=== PATIENT | male | born 1950 | race Caucasian/White ===

== ENCOUNTER 2019-10-06 16:11 | Emergency (ER) | payer MEDICARE, BC ==
[~2019-10-06] VITALS: Ht 193 cm; Wt 105.5 kg
[~2019-10-06 16:11] MED LIST: CYMBALTA30 MG PO; HUMALOG100 U/ML SC; HYZAAR 25 MG-101 TAB PO; KLONOPIN1 MG PO; LANTUS100 U/ML SC; LUMIGAN EYE GTTS OU; PRAVACHOL10 MG PO
[2019-10-06 16:19] VITALS: BP 143/77; TEMP 97.4
[2019-10-06 17:31] VITALS: PULSE 71
== END 2019-10-06 17:30 | disposition home or self-care (01) ==
LOC: COL.ER 16:11
DX: Z20.3 Contact with and (suspected) exposure to rabies (principal); I10 Essential (primary) hypertension; E78.5 Hyperlipidemia, unspecified; E11.9 Type 2 diabetes mellitus without complications; Z79.4 Long term (current) use of insulin; Y92.009 Unspecified place in unspecified non-institutional (private) residence as the place of occurrence of the external cause; Z79.899 Other long term (current) drug therapy

== ENCOUNTER 2019-10-28 11:45 | Outpatient (RCR) | payer MEDICARE, BC ==
[~2019-10-28] VITALS: Ht 193 cm; Wt 87.3 kg
[2019-10-28 12:28] VITALS: BP 122/74; PULSE 55; TEMP 98.3
== END 2020-01-07 | disposition home or self-care (01) ==
LOC: EUO
DX: Z23 Encounter for immunization (principal); Z20.3 Contact with and (suspected) exposure to rabies

== ENCOUNTER 2022-03-14 06:38 | Day surgery (SDC) | payer MEDICARE, BC ==
[~2022-03-14] VITALS: Ht 193 cm; Wt 105.5 kg
[2022-03-14] MEDS ORDERED: FOLIC ACID 11 MG/TA1 PO (07:51)
[2022-03-14] MEDS ORDERED: RYTHMOL300 MG PO (07:51)
[2022-03-14] MEDS ORDERED: METHOTREXA2.5 MG/TAB PO (07:52)
[2022-03-14] MEDS ORDERED: PREDNISONE 5MG5 MG PO (07:53)
[2022-03-14] MEDS ORDERED: COSOPT 2%-0.5%10 ML OU (07:53)
[2022-03-14] MEDS ORDERED: EDARB4012.5TAB PO (07:53)
[2022-03-14] MEDS ORDERED: CRESTOR5 MG PO (07:54)
[2022-03-14] MEDS ORDERED: CYMBALTA 60MG60 MG PO (07:54)
[2022-03-14] MEDS ORDERED: ZEBETA 5MG5 MG PO (07:55)
[2022-03-14] MEDS ORDERED: PROTONIX 40MG T40 MG PO (07:55)
[2022-03-14] MEDS ORDERED: INSULIN HUMA100 U/ML SQ (07:56)
[2022-03-14] MEDS ORDERED: XALATAN EYE DROPS OU (07:57)
[2022-03-14 09:05] VITALS: BP 118/63; PULSE 50; TEMP 97.2
--- NOTE | 2022-03-14 09:05 | NUR ---
0905 PATIENT RETURNS TO ROOM 3 VIA CART. PATIENT IS DROWSY, BUT ALERTS TO VERBAL STIMULI. PATIENT IS IN ROOM. PATIENT AMBULATES BACK TO RECLINER IN ROOM WITH THE ASSISTANCE OF 2 NURSES. RESPIRATIONS EVEN AND UNLABORED.VITAL SIGNS OBTAINED. PATIENT DOES NOT WANT ANYTHING TO EAT OR DRINK AT THIS TIME. 0920 THIS NURSE DISCONTINUED IV FROM RIGHT HAND WITH NO DIFFICULTIES. 0925 PATIENT DRESSES SELF. 0927 DOCTOR IN TO SPEAK WITH PATIENT AND PATIENT . 0930 THIS NURSE DISCUSSED DISCHARGE INSTRUCTIONS WITH PATIENT AND PATIENT . BOTH VERBALIZED UNDERSTANDING WITH NO FURTHER QUESTIONS OR CONCERNS. 0935 PATIENT DISCHARGES FROM UNIT VIA WHEELCHAIR.
[2022-03-14 09:20] VITALS: BP 115/71; PULSE 45
[2022-03-14 09:35] VITALS: BP 118/66; PULSE 44
[2022-03-14 11:23] VITALS: BP 144/77; PULSE 49; TEMP 97.2
== END 2022-03-14 09:35 | disposition home or self-care (01) ==
LOC: SDCO 06:38
DX: Z12.11 Encounter for screening for malignant neoplasm of colon (principal); K63.5 Polyp of colon; D12.3 Benign neoplasm of transverse colon; K64.0 First degree hemorrhoids; G47.33 Obstructive sleep apnea (adult) (pediatric); K21.9 Gastro-esophageal reflux disease without esophagitis
CPT/HCPCS: J2704; J7120

== ENCOUNTER 2023-08-30 07:08 | Emergency (ER) | payer MEDICARE, BC ==
[~2023-08-30] VITALS: Ht 193 cm; Wt 105.5 kg
[~2023-08-30 07:08] MED LIST changes: +COSOPT 2%-0.5%10 ML OU; +CRESTOR5 MG PO; +CYMBALTA 60MG60 MG PO; +EDARB4012.5TAB PO; +FOLIC ACID 11 MG/TA1 PO; +INSULIN HUMA100 U/ML SQ; +K-DUR20 MEQ PO; +METHOTREXA2.5 MG/TAB PO; +PREDNISONE 5MG5 MG PO; +PROTONIX 40MG T40 MG PO; +RYTHMOL300 MG PO; +XALATAN EYE DROPS OU; +ZEBETA 5MG5 MG PO
[2023-08-30 07:16] VITALS: TEMP 98.1
[2023-08-30 08:03] LABS: BASO # 0.1 K/mm3 (0.0-0.2); BASO % 1.2 % (0.0-2.0); EOS # 0.2 K/mm3 (0.0-0.7); EOS % 3.1 % (0.0-4.0); GRAN # 3.3 K/mm3 (1.4-6.5); GRAN % 56.9 % (42.2-75.2); HEMATOCRIT 42.4 % (42.0-52.0); HEMOGLOBIN 14.3 g/dl (13.5-18.0); LYMPH # 1.6 K/mm3 (1.2-3.4); LYMPH % 27.1 % (20.0-51.0); MEAN CELL VOLUME 97 fl (80.0-100.0); MEAN CORPUSCULAR HEMOGLOBIN 33 pg (27-31); MEAN CORPUSCULAR HGB CONC 34 g/dl (33.0-37.0); MEAN PLATELET VOLUME 10.3 fl (7.4-10.4); MONO # 0.7 K/mm3 (0.1-0.6); MONO % 11.5 % (1.7-9.3); PLATELET COUNT 260 K/mm3 (130-400); RED BLOOD COUNT 4.38 M/mm3 (4.20-5.60); REDCELL DISTRIBUTION WIDTH-CV 12.1 % (11.5-14.5)
[2023-08-30 08:12] LABS: BILIRUBIN,TOTAL 0.6 mg/dL (0.2-1.2); CALCIUM 9.6 mg/dL (8.4-10.2); CREATININE, serum 1.06 mg/dL (0.72-1.25); MAGNESIUM 2.1 mg/dL (1.6-2.6); POTASSIUM 3.6 mEq/L (3.5-4.5); TOTAL PROTEIN 7.1 g/dl (6.2-8.1)
[2023-08-30 08:17] LABS: INR 1.6 (0.8-3.0); PROTHROMBIN TIME 17.2 SECONDS (9.7-12.8)
[2023-08-30 08:18] LABS: TROPONIN-I 0.01 ng/mL (0.00-0.033)
[2023-08-30 08:53] VITALS: BP 129/72; PULSE 56
== END 2023-08-30 09:00 | disposition home or self-care (01) ==
LOC: COL.ER 07:08
PROVIDERS: Family Medicine
DX: R00.2 Palpitations (principal); E87.6 Hypokalemia

== ENCOUNTER 2023-09-27 10:00 | Outpatient (RCR) | payer MEDICARE, BC | END 2023-10-06 | disposition home or self-care (01) | LOC: WSST | DX: R49.0 Dysphonia (principal) ==

== ENCOUNTER 2023-10-18 11:00 | Outpatient (RCR) | payer MEDICARE, BC | END 2023-11-05 | disposition still patient (30) | LOC: WSST | DX: R49.0 Dysphonia (principal) ==

== ENCOUNTER 2023-11-28 07:49 | Emergency (ER) | payer MEDICARE, BC ==
[~2023-11-28] VITALS: Ht 193 cm; Wt 109.1 kg
[2023-11-28 07:53] VITALS: TEMP 98.3
[2023-11-28 08:17] LABS: BASO # 0.1 K/mm3 (0.0-0.2); BASO % 0.9 % (0.0-2.0); EOS # 0.2 K/mm3 (0.0-0.7); EOS % 3.1 % (0.0-4.0); GRAN % 52.8 % (42.2-75.2); HEMATOCRIT 42.3 % (42.0-52.0); HEMOGLOBIN 14.4 g/dl (13.5-18.0); LYMPH # 1.8 K/mm3 (1.2-3.4); LYMPH % 31.8 % (20.0-51.0); MEAN CELL VOLUME 95 fl (80.0-100.0); MEAN CORPUSCULAR HEMOGLOBIN 32 pg (27-31); MEAN CORPUSCULAR HGB CONC 34 g/dl (33.0-37.0); MONO # 0.6 K/mm3 (0.1-0.6); MONO % 11.1 % (1.7-9.3); PLATELET COUNT 210 K/mm3 (130-400); RED BLOOD COUNT 4.44 M/mm3 (4.20-5.60); REDCELL DISTRIBUTION WIDTH-CV 12.4 % (11.5-14.5)
[2023-11-28 08:35] LABS: ALBUMIN 3.7 g/dL (3.4-4.8); BILIRUBIN,TOTAL 0.4 mg/dL (0.2-1.2); CALCIUM 9.5 mg/dL (8.4-10.2); CREATININE, serum 1.18 mg/dL (0.72-1.25); POTASSIUM 3.4 mEq/L (3.5-4.5); TOTAL PROTEIN 6.8 g/dl (6.2-8.1)
[2023-11-28 08:55] LABS: THYROID STIMULATING HORMONE 4.235 uIU/mL (0.350-4.940); TROPONIN-I 0.012 ng/mL (0.00-0.033)
[2023-11-28 09:33] VITALS: BP 119/69; PULSE 53
== END 2023-11-28 09:43 | disposition home or self-care (01) ==
LOC: COL.ER 07:49
PROVIDERS: Family Medicine
DX: R00.2 Palpitations (principal)